=== PATIENT | male | born 1945 | race Two or more races ===

== ENCOUNTER 2017-04-30 08:29 | Outpatient (CLI) | payer OTHER | END 2017-04-30 08:35 | disposition home or self-care (01) | LOC: TOM 08:29 | DX: M48.07 Spinal stenosis, lumbosacral region (principal) ==

== ENCOUNTER → 2017-04-30 | Outpatient (CLI) | payer OTHER | END | disposition home or self-care (01) | LOC: RAD 501 10:15 | DX: M51.37 Other intervertebral disc degeneration, lumbosacral region (principal); M62.838 Other muscle spasm ==